=== PATIENT | female | born 2000 | race Caucasian/White ===

== ENCOUNTER 2022-11-18 10:00 | Emergency (ER) | payer OTHER ==
[~2022-11-18] VITALS: Ht 165.1 cm; Wt 68.0 kg
[2022-11-18 10:20] VITALS: BP 132/72; PULSE 70; RESP 18; TEMP 98; O2SAT 98
[2022-11-18 10:25] VITALS: O2SAT 98
[2022-11-18 10:53] LABS: APPEARANCE,URINE CLEAR (CLEAR); BILIRUBIN,URINE NEGATIVE (NEGATIVE); BLOOD, URINE TRACE-I (NEGATIVE); COLOR,URINE YELLOW (YELLOW); LEUKOCYTE ESTERASE ,URINE NEGATIVE (NEGATIVE); NITRITE, URINE NEGATIVE (NEGATIVE); UGLUCOSE NEGATIVE (NEGATIVE)
[2022-11-18 11:08] LABS: RBC,URINE 0-5 /HPF (0-5)
--- NOTE | 2022-11-18 11:13 | NUR ---
Female Fixing Machine Operator accompanied female patient for Pelvic Exam by STACY foreman.
--- NOTE | 2022-11-18 11:18 | NUR ---
pelvic swabs sent to lab.
[2022-11-18] MEDS ORDERED: METR-435 PO (12:30)
--- NOTE | 2022-11-18 12:38 | NUR ---
Patient discharged with v/s stable. Written and verbal after care instructions given and explained. Patient alert, oriented and verbalized understanding of instructions. Ambulatory with steady gait. All questions addressed prior to discharge. ID band removed. Patient advised to follow up with PMD. Rx of FLAGYL given. Patient educated on indication of medication including possible reaction and side effects. Opportunity to ask questions provided and answered.
== END 2022-11-18 12:38 | disposition home or self-care (01) ==
LOC: MED 10:00
DX: N76.0 Acute vaginitis (principal); B96.89 Other specified bacterial agents as the cause of diseases classified elsewhere; Z79.899 Other long term (current) drug therapy
CPT/HCPCS: 81001; 81025; 87070; 87086; 87205; 87210; 87491; 99284